=== PATIENT | male | born 1965 | race Caucasian/White ===

== ENCOUNTER → 2017-10-24 09:46 | Outpatient (CLI) | payer OTHER, SELFPAY ==
--- NOTE | 2017-10-24 | XR_ITS ---
XR chest 2V HISTORY: Tobacco use, smoker ORDERING PHYSICIAN: Jacob Feliz MD PATIENT AGE: 52 years COMPARISON: 04/20/2008 FINDINGS: The cardiomediastinal silhouette and pulmonary vascularity are within normal limits. COPD. Old granulomatous disease. No lobar consolidation or collapse. Degenerative change thoracic spine. IMPRESSION: No acute finding. COPD with old granulomatous disease
[2017-10-24 10:04] LABS: Basophils # 0.1 K/mm3 (0-0.2); Basophils % 1.6 % (0.1-2.0); Eosinophils # 0.3 K/mm3 (0.0-0.4); Eosinophils % 6.1 % (0.1-12.0); Hematocrit 48.1 % (42.0-52.0); Hemoglobin 16.6 g/dL (14.1-18.0); Lymphocytes % 19.9 K/mm3 (10-50); Mean Corpuscular HGB Conc 34.6 g/dL (31.8-35.4); Mean Corpuscular Hemoglobin 33.6 pg (27.0-31.2); Mean Corpuscular Volume 97.1 fl (80-94); Mean Platelet Volume 7.7 fl (7.4-10.4); Monocytes # 0.5 K/mm3 (0.1-1.0); Monocytes % 8.7 % (1.7-9.3); Neutrophils # 3.3 K/mm3 (1.8-7.8); Neutrophils % 63.8 % (37.0-80.0); Platelet Count 167 K/mm3 (142-424); Red Blood Count 4.95 M/mm3 (4.60-6.20); Red Cell Distribution Width 12.3 % (11.5-17.5); White Blood Count 5.2 K/mm3 (4.8-10.8)
[2017-10-24 11:28] LABS: Alanine Aminotransferase 38 U/L (12-78); Albumin Level 4.3 gm/dL (3.4-5.0); Albumin/Globulin Ratio 1.3 (1.1-1.8); Alkaline Phosphatase 55 U/L (46-116); Aspartate Amino Transferase 35 U/L (15-37); Bilirubin,Total 0.4 mg/dL (0.2-1.0); Blood Urea Nitrogen 7 mg/dL (7-18); Calcium 9.3 mg/dL (8.5-10.1); Carbon Dioxide 26 mmol/L (21.0-32.0); Chloride 100 mmol/L (98-107); Creatinine,Serum 0.75 mg/dL (0.70-1.30); Estimated Glomerular Filt Rate 109 ml/min (>60); GFR (African American) 132 ML/MIN (>60); Globulin 3.2 gm/dl (1.3-3.2); Glucose 85 mg/dL (74-106); Sodium 136 mmol/L (136-145); Total Protein,Serum 7.5 gm/dL (6.4-8.2)
== END ==
PROVIDERS: PCP Family Medicine; Visit Provider Orthopaedic Surgery
DX: Z01.812 Encounter for preprocedural laboratory examination (principal); Z01.810 Encounter for preprocedural cardiovascular examination
CPT/HCPCS: 36415; 71046; 80053; 85025; 93005

== ENCOUNTER 2017-11-04 06:01 | Day surgery (SDC) | payer OTHER, SELFPAY ==
[2017-11-03 13:43] VITALS: BMI 23.7
[2017-11-04] VITALS (13 sets, daily range): BP systolic 94–145; BP diastolic 47–89; PULSE 57–76; RESP 12–26; TEMP 36.1–43; O2SAT 90–98
--- NOTE | 2017-11-04 07:05 | P.PN_ITS ---
[facility] Anesthesia Checklist - Patient Identification Patient Identification: Arm Band - Structural Data Admitted From: Home Planned Operative Procedure/s: right shoulder arthroscopy rotator cuff repair Consent for Planned Operative Procedure(s) Verified: Yes Verified Documents: Surgical Consent, History and Physical - NPO Status Verified Time NPO: 00:00 - Additional verifications Anesthesia Reactions: No - Airway Assessment C-Spine Mobility Assessed: Yes (mp2) TMJ Mobility Assessed: Yes - Neurological Assessment Level of Consciousness: Awake, Alert - Anesthesia Plan Anesthesia Risk discussed: Yes Anesthesia Plan: Verified ASA Class: II Anesthesia Type: General [facility] Anesthesia HX I have reviewed the patient's past medical history: Yes Medical History: Reports:: Cancer (SKIN CANCER LEFT EAR), Hypertension Denies:: Diabetes Mellitus Type 1, Diabetes Mellitus Type 2, Internal Pacemaker, MRSA, Seizures Other Medical History: Denies: Blood Transfusion Reaction Laterality Cases: Right: Arthroscopy Shoulder Other Surgeries: Yes: Other (Right Arm, Eye, Left ear lesion removal.). No: Pacemaker Amputation: No Fractures: No *Family Hx:: Cancer, Diabetes, Heart Attack, Hyperlipidemia, Hypertension, Stroke
--- NOTE | 2017-11-04 13:35 | P.PN_ITS ---
[facility] Anesthesia Record Part I Intake, IV Amount: 4,200 Estimated blood loss (mL): 20 Urine output (mL): 650 Blood Pressure: 113/47 SaO2: 93 Pulse Rate: 57 Respiratory Rate: 12 Temperature: 97 F Patient is:: Awake, Stable Stable to PACU at:: 13:30
--- NOTE | 2017-11-04 13:35 | HMH.ANESII ---
[facility] Anesthesia Record Part II Discharge Time: 14:00 Destination: [facility] PACU nurse assessment reviewed?: Yes Patient Condition:: Good Anesthesia Complications:: None
--- NOTE | 2017-11-04 13:36 | P.PN_ITS ---
[facility] Anesthesia Record Part II Discharge Time: 14:00 Destination: [facility] PACU nurse assessment reviewed?: Yes Patient Condition:: Good Anesthesia Complications:: None
--- NOTE | 2017-11-04 13:46 | HMH.OPNOTE ---
Date of procedure: 11/25/17 Pre-op Diagnosis:: 1. Partial-thickness rotator cuff tear, RIGHT shoulder 2. Biceps tendon tear, RIGHT shoulder 3. Subacromial bursitis, RIGHT shoulder 4. Subacromial impingement, RIGHT shoulder 5. Rotator cuff tendinopathy, right shoulder 6. Acromioclavicular joint arthritis, right shoulder Post-op diagnosis:: other (1. Partial-thickness rotator cuff tear, RIGHT shoulder) Procedure performed:: 1. Arthroscopic repair of a full-thickness superior half partial subscapularis tendon tear, RIGHT shoulder. 2. Arthroscopic repair of partial thickness supraspinatus tendon repair, right shoulder 3. Arthroscopic subacromial decompression with subacromial and subdeltoid bursectomy and bony acromioplasty, RIGHT shoulder. 4. Arthroscopic glenohumeral joint debridement, RIGHT shoulder. 5. Arthroscopic suprapectoral biceps tenodesis, right shoulder 6. Arthroscopic distal clavicle resection, right shoulder Surgeon:: Jacob Feliz MD Systems Test Technician(s):: Laura Fowler HAMMER OPERATOR:: Jc Patel Anesthesia: GETA (With interscalene block) Estimated blood loss (mL): 10 Clinical Note:: Patient is a 52-year-old [id number] gentleman with history of pain and disability in his RIGHT shoulder following a work-related injury. He has weakness and difficulty with the use of the arm. He failed to respond satisfactorily to adequate non-operative management. Preoperative evaluation was consistent with the above mentioned diagnosis. After discussion of the risks and benefits of the surgical versus nonsurgical management, he elected to proceed with surgical remediation. Operative findings:: Examination of the shoulder under anesthesia showed good range of shoulder movements no instability was noted. Arthroscopic examination of the glenohumeral joint showed extensive labral fraying and detachment of the anterior, superior and posterior labrum from the glenoid. The biceps tendon was still noted to be intact contrary to the MRI report. The intra-articular portion of the biceps tendon was very degenerate and thinned out with extensive fraying. The portion of the tendon in the bicipital groove showed extensive synovitis. Also the extraocular the tendon showed thickening associated with extensive synovitis in the groove. The subscapularis tendon showed tendinopathy and had a full-thickness complete tear of the upper half of the tendon from its insertion to the lesser tuberosity. The lower half of the tendon was intact. The supraspinatus tendon showed partial thickness bursal surface tearing involving less than 50% of the footprint. No full-thickness tearing was noted involving the supraspinatus, infraspinatus or teres minor tendons. No intra-articular loose bodies were noted. The labrum showed extensive fraying and degeneration. The pouch was normal; the rotator interval was synovitic. The articular surface of the humerus and glenoid showed minimal degenerative changes. There was extensive subacromial and subdeltoid bursitis and the acromion had undersurface spurring over the anterolateral margin. Osteophytes were noted over the undersurface of the acromioclavicular joint. Operative note:: On the day of the procedure, the patient was met and positively identified in the preoperative area; the surgical site was marked and initialed by me. I again reviewed the clinical, x- ray and MRI findings with the patient. We had a detailed discussion about the diagnosis, implications of it, natural history and management options including both nonsurgical and surgical options for the shoulder. Patient has decided to proceed with surgery as planned - the proposed surgery includes arthroscopic glenohumeral joint examination and debridement [as appropriate], subacromial decompression with bony acromioplasty, [rotator cuff tendon debridement or repair as needed] and [distal clavicle excision]. [Even though the preoperative MRI indicated that the biceps tendon is ruptured,
--- NOTE | 2017-11-04 15:52 | SUR.OPER ---
Addendum entered by Kerri Rosales RN 11/04/17 15:53: pt received second dose of Ancef 1 gm at 1124 from Fabrice Reeves [facility] per MD request Original Note: urinary catheter removed at 1320 by Kaitlynn Almodovar RN
[2017-11-04 15:57] LABS: Microscopic,Cath URINE MICROSCOPIC (MICROSCOPIC)
[2017-11-04 16:48] LABS: Bacteria,Urine/Cath TRACE /lpf; Squamous Epithelial Ur./Cath Occasional #/hpf (0-5)
[2017-11-04 16:51] LABS: Appearance,Urine/Cath CLEAR (Clear); Bilirubin,Cath Negative (Negative); Blood, Urine/Cath Negative (Negative); Color,Urine/Cath YELLOW (Yellow); Glucose,Urine/Cath (UA) Negative (Negative); Ketones,Urine/Cath Negative (Negative); Leukocyte Esterase,Cath Negative (Negative); Nitrate,Cath Negative (Negative); Protein,Urine/Cath Negative (Negative); Specific Gravity, Urine/Cath <= 1.005 (1.005-1.030); Urobilinogen,Cath 0.2 EU/dl (0.2)
--- NOTE | 2017-11-26 15:01 | HMH.OPNOTE ---
Date of procedure: 11/04/17 Pre-op Diagnosis:: 1. Partial-thickness rotator cuff tear, RIGHT shoulder 2. Biceps tendon tear, RIGHT shoulder 3. Subacromial bursitis, RIGHT shoulder 4. Subacromial impingement, RIGHT shoulder 5. Rotator cuff tendinopathy, right shoulder 6. Acromioclavicular joint arthritis, right shoulder Post-op Diagnosis:: 1. Partial-thickness supraspinatus tendon tear, RIGHT shoulder 2. Full-thickness superior border subscapularis tendon tear, right shoulder 3. Biceps tendinitis, RIGHT shoulder 4. Subacromial bursitis, RIGHT shoulder 5. Subacromial impingement, RIGHT shoulder 6. Rotator cuff tendinopathy, right shoulder 7. Acromioclavicular joint arthritis, right shoulder 8. Glenoid labral tear, right shoulder Procedure performed:: 1. Arthroscopic repair of a full-thickness superior half partial subscapularis tendon tear, RIGHT shoulder. 2. Arthroscopic repair of partial thickness supraspinatus tendon repair, right shoulder 3. Arthroscopic subacromial decompression with subacromial and subdeltoid bursectomy and bony acromioplasty, RIGHT shoulder. 4. Arthroscopic glenohumeral joint debridement, RIGHT shoulder. 5. Arthroscopic suprapectoral biceps tenodesis, right shoulder 6. Arthroscopic distal clavicle resection, right shoulder Surgeon:: Jacob Feliz MD Dental Nurse(s):: Laura Fowler DIRECTOR CLINICAL PHARMACOLOGY:: Jc Patel Anesthesia: GETA (with interscalene block) Estimated blood loss (mL): 10 Clinical Note:: Patient is a 52-year-old [id number] gentleman with history of pain and disability in his RIGHT shoulder following a work-related injury. He has weakness and difficulty with use of the arm. He failed to respond satisfactorily to adequate non-operative management. Preoperative evaluation was consistent with the above mentioned diagnosis. After discussion of the risks and benefits of the surgical versus nonsurgical management, he elected to proceed with surgical remediation. Operative findings:: Examination of the shoulder under anesthesia showed good range of shoulder movements and no instability was noted. Arthroscopic examination of the glenohumeral joint showed extensive labral fraying and detachment of the anterior, superior and posterior labrum from the glenoid. The biceps tendon was still noted to be intact contrary to the MRI report. The intra-articular portion of the biceps tendon was very degenerate and thinned out with extensive fraying. The portion of the tendon in the bicipital groove showed extensive synovitis. Also the extra-articular part of the tendon showed thickening associated with extensive synovitis in the groove. The subscapularis tendon showed tendinopathy and had a full-thickness complete tear of the upper half of the tendon from its insertion to the lesser tuberosity. The lower half of the tendon was intact. The supraspinatus tendon showed partial thickness bursal surface tearing involving less than 50% of the footprint. No full-thickness tearing was noted involving the supraspinatus, infraspinatus or teres minor tendons. No intra-articular loose bodies were noted. The labrum showed extensive fraying and degeneration. The pouch was normal; the rotator interval was synovitic. The articular surface of the humerus and glenoid showed minimal degenerative changes. There was extensive subacromial and subdeltoid bursitis and the acromion had undersurface spurring over the anterolateral margin. Osteophytes were noted over the undersurface of the acromioclavicular joint. Operative note:: Operative note:: On the day of the procedure, the patient was met and positively identified in the preoperative area; the surgical site was marked and initialed by me. I again reviewed the clinical, x- ray and MRI findings with the patient. We had a detailed discussion about the diagnosis, implications of it, natural history and management options including both nonsurgical and surgical options for the shoulder. Patient h
--- NOTE | 2017-11-26 15:04 | P.OP_ITS ---
Date of procedure: 11/04/17 Pre-op Diagnosis:: 1. Partial-thickness rotator cuff tear, RIGHT shoulder 2. Biceps tendon tear, RIGHT shoulder 3. Subacromial bursitis, RIGHT shoulder 4. Subacromial impingement, RIGHT shoulder 5. Rotator cuff tendinopathy, right shoulder 6. Acromioclavicular joint arthritis, right shoulder Post-op Diagnosis:: 1. Partial-thickness supraspinatus tendon tear, RIGHT shoulder 2. Full-thickness superior border subscapularis tendon tear, right shoulder 3. Biceps tendinitis, RIGHT shoulder 4. Subacromial bursitis, RIGHT shoulder 5. Subacromial impingement, RIGHT shoulder 6. Rotator cuff tendinopathy, right shoulder 7. Acromioclavicular joint arthritis, right shoulder 8. Glenoid labral tear, right shoulder Procedure performed:: 1. Arthroscopic repair of a full-thickness superior half partial subscapularis tendon tear, RIGHT shoulder. 2. Arthroscopic repair of partial thickness supraspinatus tendon repair, right shoulder 3. Arthroscopic subacromial decompression with subacromial and subdeltoid bursectomy and bony acromioplasty, RIGHT shoulder. 4. Arthroscopic glenohumeral joint debridement, RIGHT shoulder. 5. Arthroscopic suprapectoral biceps tenodesis, right shoulder 6. Arthroscopic distal clavicle resection, right shoulder Surgeon:: Jacob Feliz MD Exhibit Electrician(s):: Laura Fowler OPERATIONS MANAGEMENT TRAINEE:: Jc Patel Anesthesia: GETA (with interscalene block) Estimated blood loss (mL): 10 Clinical Note:: Patient is a 52-year-old [id number] gentleman with history of pain and disability in his RIGHT shoulder following a work-related injury. He has weakness and difficulty with use of the arm. He failed to respond satisfactorily to adequate non-operative management. Preoperative evaluation was consistent with the above mentioned diagnosis. After discussion of the risks and benefits of the surgical versus nonsurgical management, he elected to proceed with surgical remediation. Operative findings:: Examination of the shoulder under anesthesia showed good range of shoulder movements and no instability was noted. Arthroscopic examination of the glenohumeral joint showed extensive labral fraying and detachment of the anterior, superior and posterior labrum from the glenoid. The biceps tendon was still noted to be intact contrary to the MRI report. The intra-articular portion of the biceps tendon was very degenerate and thinned out with extensive fraying. The portion of the tendon in the bicipital groove showed extensive synovitis. Also the extra-articular part of the tendon showed thickening associated with extensive synovitis in the groove. The subscapularis tendon showed tendinopathy and had a full-thickness complete tear of the upper half of the tendon from its insertion to the lesser tuberosity. The lower half of the tendon was intact. The supraspinatus tendon showed partial thickness bursal surface tearing involving less than 50% of the footprint. No full-thickness tearing was noted involving the supraspinatus, infraspinatus or teres minor tendons. No intra-articular loose bodies were noted. The labrum showed extensive fraying and degeneration. The pouch was normal; the rotator interval was synovitic. The articular surface of the humerus and glenoid showed minimal degenerative changes. There was extensive subacromial and subdeltoid bursitis and the acromion had undersurface spurring over the anterolateral margin. Osteophytes were noted over the undersurface of the acromioclavicular joint. Operative note:: Operative note:: On the day of the procedure, the patient was met and positively identified in the preoperative area; the surgical site was marked and initialed by me. I
== END 2017-11-04 15:00 | disposition home or self-care (01) ==
PROVIDERS: Family Provider Orthopaedic Surgery; PCP Family Medicine; Visit Provider Orthopaedic Surgery
PROC: (CPT 29827; principal; 2017-11-04 07:30)
DX: M75.111 Incomplete rotator cuff tear or rupture of right shoulder, not specified as traumatic (principal); M75.41 Impingement syndrome of right shoulder; M19.111 Post-traumatic osteoarthritis, right shoulder; M75.51 Bursitis of right shoulder; M89.011 Algoneurodystrophy, right shoulder; Y99.0 Civilian activity done for income or pay
CPT/HCPCS: 29827; 29828; 29826; 81001; 96374; C1713; J2405

== ENCOUNTER → 2018-01-28 08:27 | Outpatient (CLI) | payer OTHER, SELFPAY ==
--- NOTE | 2018-01-28 | XR_ITS ---
XR shoulder RT min 2V HISTORY: Follow-up surgery with pain ITS.REASON: POST OPERATIVE VISIT ORDERING PHYSICIAN: Jacob Feliz MD PATIENT AGE: 52 years COMPARISON: 07/14/2017 FINDINGS: There has been osteotomy of the acromioclavicular joint. No acute fracture or dislocation. Unremarkable glenohumeral joint. No lytic or blastic changes. IMPRESSION: Osteotomy at the acromioclavicular joint otherwise no change
== END ==
PROVIDERS: Visit Provider Orthopaedic Surgery
DX: Z48.89 Encounter for other specified surgical aftercare (principal)
CPT/HCPCS: 73030

== ENCOUNTER 2018-03-17 08:00 | Outpatient (RCR) | payer OTHER, SELFPAY ==
--- NOTE | 2017-12-23 09:37 | HMH.PTOPEV ---
Rehab Outpatient Evaluation Rehab OP Evaluation Start: 12/23/17 08:34 Freq: Status: Active Protocol: Document 12/23/17 08:34 TFRY (Rec: 12/23/17 09:36 TFRY [id number]) Electronically Signed By Judith Santos OT 12/23/17 08:34 Outpatient Therapy Subjective History Subjective History THIS IS A 52 YEAR OLD RIGHT HANDED MALE REFERRED TO OCCUPATIONAL THERAPY PATIENT IN STATUS POST ROTATOR CUFF REPAIR, BICEP TENODESIS, DISTAL CLAVILE EXCISION AND SAD RIGHT SHOULDER ON 11/04/17. PATIENT REPORTS THAT HE INJURIED HIS SHOULDER ON 07/14 WHEN HE WENT TO FALL WITH OUTSTRETCHED ARM. Chief Complaint Pain Symptom Type Dull Burning Symptoms Relieved By Rest/Positioning Symptoms Aggravated By Physical Activity Prior Functional Limitations None Current Functional Limitations Reaching Lifting Symptom Description Intermittent Level of pain today (0-10) 2 Pain scale - at its best (0-10) 0 Pain scale - at its worst (0-10) 8 Shoulder/Elbow Eval Shoulder Objective Measurements Palpation Tenderness tenderness shoulder exam standard right tenderness over the bicipital tendon right shoulder exam standard Shoulder Palpation Findings Tenderness Shoulder ROM Right Shoulder ROM Limitations Pain Shoulder Abduction Active Range of 30 Motion (degrees) Shoulder Abduction Passive Range of 40 Motion (degrees) Shoulder Flexion Active Range of Motion 60 (degrees) Query Text: Shoulder Flexion Passive Range of Motion 90 (degrees) Shoulder External Rotation Active Range 0 of Motion (degrees) Shoulder External Rotation Passive Range 0 of Motion (degrees) Shoulder Internal Rotation Active Range WFL GRAVITY ELIM. of Motion (degrees) Shoulder Internal Rotation Passive Range 40 of Motion (degrees) Shoulder Extension Active Range of 20 Motion (degrees) pain with active ROM shoulder exam right standard pain with passive ROM shoulder exam right standard decreased ROM shoulder exam standard right Shoulder MMT Shoulder Strength Reason Not Measured Orthopedic Precautions Elbow Objective Measurements Outpatient Therapy Assessment Impairments Problems/Impairmments Palpation Tenderness Impaired Range
== END 2018-03-17 09:29 | disposition home or self-care (01) ==
LOC: OT 08:00
PROVIDERS: Family Provider Orthopaedic Surgery; PCP Physician Assistant; Visit Provider Orthopaedic Surgery
DX: Z98.890 Other specified postprocedural states (principal); Z09 Encounter for follow-up examination after completed treatment for conditions other than malignant neoplasm; S46.011A Strain of muscle(s) and tendon(s) of the rotator cuff of right shoulder, initial encounter
CPT/HCPCS: 97014; 97110; 97140; 97163; 97165; G0283

== ENCOUNTER → 2019-12-23 10:37 | Outpatient (CLI) | payer OTHER, SELFPAY ==
--- NOTE | 2019-12-23 10:38 | MR_ITS ---
PROCEDURE: MR SHOULDER LT WO CON CLINICAL INDICATION: evaluate for a rotator cuff tear Left shoulder pain with limited range of motion COMPARISON: The TECHNIQUE: Routine multiplanar multi echo sequences are performed without gadolinium enhancement. FINDINGS: There is mild narrowing of the subacromial space. There is some edema within the AC joint. There is complete tear of the infraspinatus tendon with retraction of the musculotendinous fibers. Full-thickness tear involves the distal aspect of the supraspinatus tendon. There is thickening of the tendon distally as well. The supraspinatus tendon tear does not appear to be complete. The subscapularis and teres minor tendons are intact. There is moderate amount of edema about the shoulder specially in the infraspinatus region. Small amount fluid is present in the subcoracoid area. There is fluid deep to the deltoid at the supraspinatus region. The bicipital tendon is in place. No obvious labral tear. The there are mild osteoarthritic changes of the shoulder joint. IMPRESSION: 1. Complete tear of the infraspinatus tendon with retraction of the musculotendinous fibers 2. Full-thickness tear of the supraspinatus tendon distally without retraction of the musculotendinous fibers. 3. Subacromial stenosis with moderate amount of soft tissue edema about the shoulder joint and subcoracoid bursitis with the with mild osteoarthritis. Dictated by: Ancelmo Gomez MD 12/25/2019 07:58 Electronically signed by Ancelmo Gomez MD in [place] 12/25/2019 07:58
== END ==
PROVIDERS: PCP Family Medicine; Visit Provider Orthopaedic Surgery
DX: M75.42 Impingement syndrome of left shoulder (principal)
CPT/HCPCS: 73221

== ENCOUNTER → 2020-02-05 08:42 | Outpatient (CLI) | payer OTHER, SELFPAY ==
[2020-02-05 09:46] LABS: Basophils # 0.1 K/mm3 (0-0.2); Basophils % 3.1 % (0.1-2.0); Eosinophils # 0.2 K/mm3 (0.0-0.4); Eosinophils % 4.6 % (0.1-12.0); Hematocrit 50.3 % (42.0-52.0); Lymphocytes # 1.2 K/mm3 (0.7-4.5); Lymphocytes % 32.4 % (10-50); Mean Corpuscular HGB Conc 33.7 g/dL (31.8-35.4); Mean Corpuscular Hemoglobin 32.2 pg (27.0-31.2); Mean Corpuscular Volume 95.5 fl (80-94); Mean Platelet Volume 7.5 fl (7.4-10.4); Monocytes # 0.3 K/mm3 (0.1-1.0); Monocytes % 8.9 % (1.7-9.3); Neutrophils # 1.8 K/mm3 (1.8-7.8); Neutrophils % 51.2 % (37.0-80.0); Platelet Count 165 K/mm3 (142-424); Red Blood Count 5.27 M/mm3 (4.60-6.20); Red Cell Distribution Width 12.7 % (11.5-17.5); White Blood Count 3.6 K/mm3 (4.8-10.8)
--- NOTE | 2020-02-05 09:50 | ECG_ITS ---
APPROVED REPORT Exam: Resting ECG HR:69 bpm ECG Measurements Heart Rate 69 AXES TX 164 P 79 QRSd 96 QRS 61 QT 396 T 73 QTc 424 <Conclusion> Normal sinus rhythm Incomplete RBBB Otherwise a Normal ECG Electronically signed by : Anish Torres, 02/05/2020 22:23:36
--- NOTE | 2020-02-05 09:54 | XR_ITS ---
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 The lungs are clear without infiltrates, suspicious nodules, or pleural effusions. No acute bony abnormalities. There are mild multilevel degenerate changes of the thoracic spine. IMPRESSION: No acute findings. Dictated by: Dr. Geovany Duff MD 02/05/2020 10:[address] Geovany Duff MD in [place] 02/05/2020 10:44
[2020-02-05 10:33] LABS: Chloride 99 mmol/L (98-107)
[2020-02-05 10:34] LABS: Potassium 4.8 mmoL/L (3.5-5.1); Sodium 131 mmol/L (136-145)
[2020-02-05 10:37] LABS: Anion Gap 8.8 mEq/L (5-15); Blood Urea Nitrogen 8 mg/dl (9-20); Carbon Dioxide 28 mmol/L (22.0-30.0); Estimated Glomerular Filt Rate 100 ml/min (>60); GFR (African American) 121 ML/MIN (>60); Glucose 102 mg/dl (74-100)
[2020-02-06 08:32] LABS: Covid-19 Nasal PCR Sendout UK NOT DETECTED
== END ==
PROVIDERS: Orthopaedic Surgery; PCP Family Medicine; Visit Provider Internal Medicine Gastroenterology
DX: Z01.818 Encounter for other preprocedural examination (principal); M25.512 Pain in left shoulder
CPT/HCPCS: 36415; 71046; 80048; 85025; 93005; U0003

== ENCOUNTER 2020-02-07 08:39 | Day surgery (SDC) | payer OTHER, SELFPAY ==
--- NOTE | 2020-02-02 14:35 | SUR.PREOP ---
02/01/20 @2220--PHONE CALL MADE TO PATIENT. PATIENT UNDERSTANDS THAT LAB WORK AND COVID TESTING NEEDS TO BE COMPLETED @ 0800 ON 02/05/20. PATIENT UNDERSTANDS IF LAB WORK AND COVID-19 TESTS ARE NOT COMPLETED BY 12PM ON THAT DATE, THE SURGERY SCHEDULED WILL BE CANCELLED AND RESCHEDULED FOR ANOTHER TIME.
[2020-02-03 11:18] VITALS: BMI 23.7
[2020-02-07] VITALS (11 sets, daily range): BP systolic 101–152; BP diastolic 55–77; PULSE 55–82; RESP 12–18; TEMP 36.4–43; O2SAT 94–99
--- NOTE | 2020-02-07 10:49 | P.PN_ITS ---
[facility] Anesthesia Checklist - Structural Data Admitted From: Home Planned Operative Procedure/s: l shoulder arthroscopy Consent for Planned Operative Procedure(s) Verified: Yes - Additional verifications Anesthesia Reactions: No Hx Blood Transfusions: No Blood Transfusion Reaction: No - Airway Assessment C-Spine Mobility Assessed: Yes TMJ Mobility Assessed: Yes Dentition: Partials - Neurological Assessment Level of Consciousness: Awake, Alert, Appropriate - Anesthesia Plan Anesthesia Risk discussed: Yes Anesthesia Plan: Verified ASA Class: II Anesthesia Type: General w/block - Preoperative Comments Pre-Operative Comments: explained bp block to pt incl risks,pt agrees to proceed [facility] History I have reviewed the patient's past medical history: Yes Medical History: Reports:: Cancer (skin), Hypertension Denies:: Diabetes Mellitus Type 1, Diabetes Mellitus Type 2, Internal Pacemaker, MRSA, Seizures *Have you ever received a pneumonia vaccine?: No *Have you received a flu vaccine this season?: No Other Medical History: Denies: Blood Transfusion Reaction Anesthesia experience/problems:: none Laterality Cases: Right: Arthroscopy Shoulder Other Surgeries: Yes: Other. No: Pacemaker Amputation: No Fractures: Yes - *Social History Educational Level: Completed GED/General Educational Development Smoking Status: Current every day smoker Tobacco Type: cigarettes # Packs/Day (cigarettes): 1 Alcohol Intake: never Alcohol Intake Frequency:: a few times a month Substance Use Type: denies use *Occupational Status:: employed Housing: house Household Members: spouse, children *Travel in the last 8 weeks: None Family Hx:: No significant family history
--- NOTE | 2020-02-07 14:24 | SUR.OPER ---
1100-pt's updated at this time 1420-pt's updated at this time
--- NOTE | 2020-02-07 15:43 | P.PN_ITS ---
[facility] Anesthesia Record Part I Intake, IV Amount: 2,700 Estimated blood loss (mL): 20 Urine output (mL): 600 Blood Pressure: 106/56 SaO2: 97 Pulse Rate: 55 Respiratory Rate: 12 Temperature: 97.6 F Patient is:: Drowsy, Stable Stable to PACU at:: 15:40
[2020-02-07 16:07] LABS: Microscopic,Cath URINE MICROSCOPIC (MICROSCOPIC)
[2020-02-07 16:23] LABS: Appearance,Urine/Cath CLEAR (Clear); Bilirubin,Cath Negative (Negative); Blood, Urine/Cath Negative (Negative); Color,Urine/Cath YELLOW (Yellow); Glucose,Urine/Cath (UA) Negative (Negative); Ketones,Urine/Cath Negative (Negative); Leukocyte Esterase,Cath Negative (Negative); Nitrate,Cath Negative (Negative); Protein,Urine/Cath Negative (Negative); Specific Gravity, Urine/Cath <= 1.005 (1.005-1.030); Urobilinogen,Cath 0.2 EU/dl (0.2)
[2020-02-07 16:59] LABS: Squamous Epithelial Ur./Cath Occasional #/hpf (0-5); WBC,Urine/Cath Occasional #/hpf (0-3)
--- NOTE | 2020-02-07 17:43 | HMH.OPNOTE ---
Date of procedure: 02/07/20 Pre-op Diagnosis:: 1.? Full-thickness Rotator cuff tear LEFT shoulder 2. Biceps tendinopathy LEFT shoulder 3. Subacromial bursitis LEFT shoulder 4. Subacromial impingement LEFT shoulder 5. Acromioclavicular joint arthritis LEFT shoulder Post-op Diagnosis:: 1. Rotator cuff tear, LEFT shoulder- Full thickness tear of the supraspinatus tendon. 2. Biceps tendinopathy, LEFT shoulder 3. Subacromial bursitis, LEFT shoulder 4. Subacromial impingement, LEFT shoulder 5. Degenerative labrum, LEFT glenohumeral joint 6.? Acromioclavicular joint arthritis, LEFT shoulder Procedure performed:: 1. LEFT shoulder arthroscopic rotator cuff repair. 2.? LEFT shoulder arthroscopic subacromial decompression with subacromial and subdeltoid bursectomy and a bony acromioplasty. 3.? LEFT shoulder arthroscopic glenohumeral joint debridement, extensive. 4.? LEFT shoulder arthroscopic biceps tenodesis 5.? LEFT shoulder arthroscopic distal clavicle excision Surgeon:: Jacob Feliz MD Lab Asst(s):: Zulema Vu SYSTEMS PROJECT MANAGER:: Jc Patel Anesthesia: GETA, regional (Interscalene nerve block) Estimated blood loss (mL): 5 Clinical Note:: Patient is a 54-year-old [id number] male with pain and disability in his LEFT shoulder after a work-related injury couple of months ago. He had pain, weakness and difficulty with the use of the arm. Preoperative evaluation including MRI scan was consistent with the above mentioned diagnosis.? The MRI findings included- 1. Full-thickness tear of the supraspinatus tendon without retraction of the tendon. 2. Complete full-thickness tear of the infraspinatus tendon with retraction of the musculotendinous fibers. 3. Subacromial stenosis with acromioclavicular hypertrophy. After discussion of the risks and benefits of the surgical versus nonsurgical management, he elected to proceed with surgical remediation.? Please refer to my office note for full details. Operative findings:: There was a complete full-thickness tear of the infraspinatus tendon and near complete full-thickness tear of the supraspinatus tendon; only small part of the anterior supraspinatus tendon was intact. The biceps tendon showed some fraying at the biceps anchor and also intrasubstance tearing and synovitis.? The labrum was frayed and partially detached around the biceps anchor.? The articular surface of the humerus and the glenoid are fairly well preserved with no significant cartilage loss. There was extensive subacromial and sub deltoid bursitis and the acromion had undersurface spurring over the anterolateral margin. Also there was undersurface spurring over the AC joint. Operative note:: On the day of the procedure, the patient was positively identified in the preoperative area, the surgical site was marked and initialed by me. I performed a general physical examination, reviewed the consent form, his clinical and diagnostic information. We again had a detailed discussion about the diagnosis, natural history and management options including both nonsurgical and surgical options for his shoulder. Nonsurgical alternatives discussed include physical therapy, activity modification NSAIDs and effective pain management. Given the symptoms, clinical and MRI findings, functional status, his age, patient is opting for surgical remediation.? I have discussed the surgical option best suited for his shoulder- an arthroscopic/open rotator cuff repair, glenohumeral joint debridement, distal clavicle excision, biceps tenotomy versus tenodesis and subacromial decompression. I told the patient that there were no guarantees with surgery; he could be no better or even worse. The complications discussed include but are not limited to infection, injury to nerves and blood vessels, bleeding, hematoma, tendon injury, fluid extravasation, chondrolysis, injury to the articular surface, instrument failure, DVT/PE, incomplete relief/continued pain, failure of the condition to impr
== END 2020-02-07 17:18 | disposition home or self-care (01) ==
LOC: OR 08:42
PROVIDERS: PCP Family Medicine; Visit Provider Orthopaedic Surgery
PROC: (CPT 29805; principal; 2020-02-07 10:00)
DX: M75.122 Complete rotator cuff tear or rupture of left shoulder, not specified as traumatic (principal); M75.52 Bursitis of left shoulder; M75.42 Impingement syndrome of left shoulder; M12.512 Traumatic arthropathy, left shoulder; Z72.0 Tobacco use; I10 Essential (primary) hypertension; W10.8XXA Fall (on) (from) other stairs and steps, initial encounter; Y92.63 Factory as the place of occurrence of the external cause
CPT/HCPCS: 29827; 29828; 29826; 81001; 96374; C1713

== ENCOUNTER → 2020-05-08 07:49 | Outpatient (CLI) | payer OTHER, SELFPAY ==
--- NOTE | 2020-05-08 07:54 | XR_ITS ---
PROCEDURE: XR SHOULDER LT MIN 2V CLINICAL INDICATION: sp LT shoulder surgery, dos 02/07/2020 Follow-up surgery COMPARISON: 12/16/2019 FINDINGS: Status post acromioclavicular osteotomy. There is mild subacromial stenosis distally. There are 2 anchor screws now present along the humeral head and there is a lucency in the proximal aspect of the humerus at the diaphyseal metaphyseal junction consistent with bicipital tendon transfer. There are mild osteoarthritic changes of the glenohumeral joint. Other findings:None. IMPRESSION: Postsurgical changes as described above with mild osteoarthritis Dictated b Ancelmo Gomez MD 05/08/2020 08:24 Ancelmo Gomez MD in [facility] 05/08/2020 08:24
== END ==
PROVIDERS: PCP Family Medicine; Visit Provider Orthopaedic Surgery
DX: Z09 Encounter for follow-up examination after completed treatment for conditions other than malignant neoplasm (principal); Z98.890 Other specified postprocedural states
CPT/HCPCS: 73030

== ENCOUNTER 2020-05-18 16:00 | Outpatient (RCR) | payer OTHER, SELFPAY ==
--- NOTE | 2020-03-28 15:16 | HMH.PTOPEV ---
PT Outpatient Evaluation Rehab PT Outpatient Evaluation Start: 03/28/20 14:46 Freq: Status: Active Protocol: Document 03/28/20 14:51 DEBBIEDMITRY (Rec: 03/28/20 15:16 ELEONORAKELLY [id number]) Electronically Signed By Jude Vu PT 03/28/20 14:51 Outpatient Therapy Subjective History Subjective History This is the initial Physical Therapy evaluation for Dante Fournier. Pt is a 54 y/o male referred to PT s/p Pat slade. Pt reports original injury was due to a fall down stairs. Pt reports he slipped and reached out to grab to keep from falling and felt severe pain. Pt reports due to COVID he was unable to have surgery until 02/07/20. MD order describes sig. surgical procedures including RCR, bicep tenodesis, SAD, clavicle excision and bursectomy. Chief Complaint Pain,Stiff,Weakness Symptom Type Ache,Sharp,Stabbing Symptoms Relieved By Rest/Positioning,Ice Symptoms Aggravated By Physical Activity,Lifting Prior Functional Limitations None Current Functional Limitations Reaching,Lifting,Housework, Dressing,Desk Work/Reading, Driving,Sleeping,Recreation Activity Symptom Description Intermittent Level of pain today (0-10) 4 Pain scale - at its best (0-10) 0 Pain scale - at its worst (0-10) 6 Shoulder/Elbow Eval Shoulder Objective Measurements Shoulder ROM Left Shoulder ROM Limitations Muscle Weakness,Pain Shoulder Abduction Active Range of 50 Motion (degrees) Shoulder Flexion Active Range of Motion 60 (degrees) Query Text: Shoulder External Rotation Active Range 15 of Motion (degrees) Shoulder Extension Active Range of 35 Motion (degrees) pain with active ROM shoulder exam left standard pain with passive ROM shoulder exam left standard decreased ROM shoulder exam standard left full ROM shoulder exam standard right Elbow Objective Measurements Elbow ROM Left full ROM elbow exam standard left Elbow MMT Elbow/Forearm Strength Reason Not WFL Measured Outpatient Therapy Assessment Impairments Problems/Impairmments Palpation Tenderness,Impaired Range of Motion,Impaired
== END 2020-05-18 16:05 | disposition home or self-care (01) ==
LOC: PT 16:00
PROVIDERS: Visit Provider Orthopaedic Surgery
DX: M25.512 Pain in left shoulder (principal)
CPT/HCPCS: 97010; 97014; 97016; 97110; 97140; 97163; 97164; G0283

== ENCOUNTER 2020-08-10 15:00 | Outpatient (RCR) | payer OTHER, SELFPAY | END 2020-08-10 15:05 | disposition home or self-care (01) | LOC: PT 15:00 | PROVIDERS: Visit Provider Orthopaedic Surgery | DX: M75.102 Unspecified rotator cuff tear or rupture of left shoulder, not specified as traumatic (principal) | CPT/HCPCS: 97110; 97163; 97164 ==

== ENCOUNTER → 2021-01-18 12:39 | Outpatient (CLI) | payer OTHER, SELFPAY ==
--- NOTE | 2021-01-18 12:46 | MR_ITS ---
PROCEDURE: MR LUMBAR SPINE WO CON CLINICAL INDICATION: LBP RADIATING DOWN LEFT HIP Pt c/o lbp that radiates down left leg. No injury or trauma. Pt states he has a hx of DDD. COMPARISON: MR CROP DUSTER/O MRI-L-SPINE W/O from 08/16/2015 TECHNIQUE: Standard multiplanar multiecho sequences are performed without contrast. 3-D MIP and myelographic images are also rendered and reviewed FINDINGS: Motion artifact degrades fine detail. There is diffuse heterogeneous signal intensity of the spine consistent with heterogeneous red marrow replacement. The spinal cord ends at the L1 level. There is normal alignment. There is mild lumbar scoliosis convex left. T12-L1: Unremarkable. L1-L2: Mild bulging disc slightly eccentric toward the left not significantly changed. L2-L3: Mild concentric bulging disc the laterally not significantly changed. There is prominent bridging osteophytes on the right at L2-L3. Facet and ligamentum hypertrophy is present. These findings are not significantly changed. L3-L4: Degenerate disc disease with concentric bulging disc along with facet and ligamentum hypertrophic change with right lateral osteophytes and facet and ligamentum hypertrophy L4-5: Degenerative disc disease with bulging disc and a broad base central and left paracentral disc osteophyte complex along facet and ligamentum hypertrophy. This is causing severe left-sided foraminal narrowing and left lateral recess narrowing which appears more severe than when compared to the previous exam with compression upon the left L5 nerve root and the exiting L4 nerve root. L5-S1: Mild bulging disc along with facet and ligamentum hypertrophy with moderate bilateral foraminal narrowing.. IMPRESSION: Abnormal MRI of the lumbar spine with multilevel lumbar spondylosis with degenerative disc disease, bulging disc, disc osteophyte complexes along with facet and ligamentum hypertrophy and lumbar scoliosis convex left. Please see above for detailed description at each level. Dictated by: Ancelmo Gomez MD 01/20/2021 11:44 Ancelmo Gomez MD in [facility] 01/20/2021 11:44
== END ==
PROVIDERS: PCP Family Medicine; Visit Provider Family Medicine
DX: M51.36 Other intervertebral disc degeneration, lumbar region (principal)
CPT/HCPCS: 72148; 76376

== ENCOUNTER → 2021-04-30 10:25 | Outpatient (CLI) | payer OTHER, SELFPAY | PROVIDERS: Visit Provider Neurological Surgery | DX: Z01.812 Encounter for preprocedural laboratory examination (principal); Z11.52 Encounter for screening for COVID-19 | CPT/HCPCS: U0003 ==

== ENCOUNTER 2022-08-02 00:04 | Emergency (ER) | payer BC, SELFPAY ==
[2022-08-02] VITALS (7 sets, daily range): BP systolic 90–125; BP diastolic 56–78; PULSE 55–69; RESP 14–16; TEMP 36.6–36.7; O2SAT 95–98; BMI 25.0
--- NOTE | 2022-08-02 00:08 | ECG_ITS ---
APPROVED REPORT Exam: Resting ECG HR:60 bpm ECG Measurements Heart Rate 60 AXES MT 188 P 70 QRSd 109 QRS 75 QT 404 T 79 QTc 405 Conclusion SINUS RHYTHM POSSIBLE RIGHT VENTRICULAR CONDUCTION DELAY [RSR (QR) IN V1/V2] BORDERLINE ECG UNCONFIRMED REPORT Electronically signed by : Kuldeep Alvarado MD 08/02/2022 13:28:01
--- NOTE | 2022-08-02 00:17 | PC.NURSE ---
Dr. Rosales at
--- NOTE | 2022-08-02 00:21 | CT_ITS ---
PROCEDURE INFORMATION: Exam: CT Head Without Contrast Exam date and time: 08/02/2022 12:41 AM Age: 57 years old Clinical indication: Other: Tremors TECHNIQUE: Imaging protocol: Computed tomography of the head without contrast. Radiation optimization: All CT scans at this facility use at least one of these dose optimization techniques: automated exposure control; mA and/or kV adjustment per patient size (includes targeted exams where dose is matched to clinical indication); or iterative reconstruction. COMPARISON: HDWO CT HEAD W/O CONTRAST 01/18/2017 10:39 PM FINDINGS: Brain: Patchy hypoattenuation in the periventricular deep white matter bilaterally. Cerebral ventricles: Enlargement of ventricles, sulci and cisterns bilaterally. Paranasal sinuses: Mucosal thickening within paranasal sinuses but no fluid levels are evident. Mastoid air cells: Visualized mastoid air cells are well aerated. Bones/joints: Unremarkable. No acute fracture. Soft tissues: Unremarkable. Vasculature: Calcification of carotid siphons and vertebrobasilar arterial systems. IMPRESSION: No evidence for acute intracranial hemorrhage, midline shift or mass effect. Mild cortical atrophy and chronic periventricular microangiopathy.
--- NOTE | 2022-08-02 00:21 | XR_ITS ---
PROCEDURE INFORMATION: Exam: XR Chest Exam date and time: 08/02/2022 1:02 AM Age: 57 years old Clinical indication: Other: Tremors; Additional info: Tremors and seizure like activity TECHNIQUE: Imaging protocol: Radiologic exam of the chest. Views: 1 view. COMPARISON: CR XR CHEST 2V 02/05/2020 9:56 AM FINDINGS: Lungs: Unremarkable. No consolidation. Pleural spaces: Unremarkable. No pleural effusion. No pneumothorax. Heart/Mediastinum: Unremarkable. No cardiomegaly. Bones/joints: Unremarkable. IMPRESSION: No acute findings.
--- NOTE | 2022-08-02 00:23 | HMH.EDABDPAI ---
Discharge Plan Disposition Patient Disposition: Home, Self-Care Condition: Good Prescriptions Prescriptions: No Action atenolol 50 mg tablet 50 mg PO QDAY omega-3 fatty acids-fish oil 1 EACH capsule 1,200 each PO DAILY amlodipine-olmesartan 1 EACH tablet 10 each PO DAILY Referrals Follow up/Referrals: Markos Hernandez [Primary Care Provider] - See instructions Activity Restrictions/Add. 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 Please also discuss with your primary care team regarding alcohol rehabilitation. Please drink plenty of water and eat 3 balanced meals and return to the emergency department if symptoms recur. Clinical Impressions Clinical Impression: Acute confusion, Alcohol use disorder Instructions Patient Instructions: Alcohol Use Disorder, DI for Altered Mental Status Print Language Print Language: Slovenian Discharge ED Provider: Zuri Rosales Abdominal Pain HPI General Chief Complaint: Shortness of Breath/Dyspnea Stated Complaint: SOA Time Seen by Provider: 08/02/22 03:00 Mode of Arrival: Ambulatory Source of Information: Patient and Spouse Limitations: No Limitations History of Present Illness HPI narrative: Mr. Corona is a 57-year-old male past medical history for alcohol abuse presenting to the emergency department for transient Of confusion and concern for seizure-like activity. History provided by patient's at bedside. She reports today few minutes prior to arrival her had a period where he appeared confused his eyes rolled to the back of his head and he was tremulousness. Lasted about 5 minutes followed by postictal period of a few seconds. Patient reports he has been drinking heavily today. Patient reports he drinks 6 beers just prior to symptom onset. However patient reports he drinks heavily daily greater than 6 beers a day. Patient denies any fevers or other infectious-like symptoms. Denies prior history of seizures. Denies any chest pain, new dyspnea or new cough. Patient has no focal neurological deficits on exam. Denies any illicit drug use. No new medications. Related Data Home Medications Medication Instructions Recorded Confirmed atenolol 50 mg tablet 50 mg PO QDAY blood pressure 10/24/17 06/13/20 omega-3 fatty acids-fish oil 300 1,200 each PO DAILY Supplement 10/24/17 06/13/20 mg-1,000 mg capsule amlodipine 10 mg-olmesartan 20 mg 10 each PO DAILY BLOOD PRESSURE 11/03/17 06/13/20 tablet Allergies Allergy/AdvReac Type Severity Reaction Status Date / Time No Known Allergies Allergy Verified 08/15/20 09:21 PFSH PFS Social History Smoking Status: Current every day smoker tobacco type: cigarettes packs per day: 1 alcohol intake: current substance use type: denies use current occupational status: employed Travel in the last 8 weeks: None household members: spouse housing: house current occupation: [employer] current occupational exposures/hazards: Yes caffeine: Yes ROS Obtained: Yes All systems reviewed & no additional complaints except as documented Physical Exam General General appearance: alert and in no apparent distress Head Head exam: atraumatic and normocephalic Eye Eye exam: Present normal appearance and EOMI ENT ENT exam: Present normal exam and normal oropharynx Neck Neck exam: Present normal inspection Chest Chest inspection: Present normal inspection and symmetric chest wall rise Respiratory Respiratory exam: Present normal lung sounds bilaterally Cardiovascular Cardiovascular exam: Present regular rate and normal rhythm Abdominal Exam Abdominal exam: Present soft and normal bowel sounds Extremities Exam Extremities exam: Present normal inspection and full ROM Back Exam Back exam: Present normal inspection and full ROM Neurological
[2022-08-02 00:29] LABS: Basophils # 0.1 K/mm3 (0-0.2); Basophils % 2.3 % (0.1-2.0); Eosinophils # 0.2 K/mm3 (0.0-0.4); Eosinophils % 5.3 % (0.1-12.0); Hematocrit 49.5 % (42.0-52.0); Hemoglobin 16.6 g/dL (14.1-18.0); Lymphocytes # 1.4 K/mm3 (0.7-4.5); Lymphocytes % 31.4 % (10-50); Mean Corpuscular HGB Conc 33.5 g/dL (31.8-35.4); Mean Corpuscular Hemoglobin 32.6 pg (27.0-31.2); Mean Corpuscular Volume 97.2 fl (80-94); Mean Platelet Volume 7.5 fl (7.4-10.4); Monocytes # 0.3 K/mm3 (0.1-1.0); Monocytes % 7.2 % (1.7-9.3); Neutrophils # 2.5 K/mm3 (1.8-7.8); Neutrophils % 53.7 % (37.0-80.0); Platelet Count 173 K/mm3 (142-424); Red Cell Distribution Width 13.3 % (11.5-17.5); White Blood Count 4.6 K/mm3 (4.8-10.8)
[2022-08-02 00:31] LABS: Chloride 102 mmol/L (98-107); Potassium 3.8 mmoL/L (3.5-5.1); Sodium 137 mmol/L (136-145)
[2022-08-02 00:33] LABS: Blood Urea Nitrogen 5 mg/dl (9-20); Creatinine Clearance Estimated 159 mL/min (50-200); Estimated Glomerular Filt Rate 138 ml/min (>60); GFR (African American) 167 ML/MIN (>60)
[2022-08-02 00:34] LABS: Alanine Aminotransferase 32 U/L (12-78); Albumin Level 4.5 g/dl (3.5-5.0); Albumin/Globulin Ratio 1.6 (1.1-1.8); Alkaline Phosphatase 57 U/L (38-126); Anion Gap 16.8 mEq/L (5-15); Aspartate Amino Transferase 51 U/L (17-59); Bilirubin,Total 0.5 mg/dl (0.2-1.3); Calcium 9.4 mg/dl (8.4-10.2); Carbon Dioxide 22 mmol/L (22.0-30.0); Globulin 2.9 g/dL (1.3-3.2); Glucose 83 mg/dl (74-100); Magnesium 1.8 mg/dl (1.6-2.3); Total Protein,Serum 7.4 g/dl (6.3-8.2)
--- NOTE | 2022-08-02 00:36 | PC.NURSE ---
Pt gone to RAD
[2022-08-02 00:49] LABS: Troponin I < 0.01 ng/ml (0.00-0.034)
--- NOTE | 2022-08-02 00:55 | PC.NURSE ---
Pt back from RAD
--- NOTE | 2022-08-02 01:04 | PC.NURSE ---
Pt ambulatory to bathroom
[2022-08-02 01:20] LABS: Lactic Acid 1.7 mmol/L (0.7-2.1)
--- NOTE | 2022-08-02 01:22 | PC.NURSE ---
Pt provided with warm blanket
== END 2022-08-02 03:00 | disposition home or self-care (01) ==
PROVIDERS: Emergency Provider Student in an Organized Health Care Education/Training Program; PCP Family Medicine
DX: F10.10 Alcohol abuse, uncomplicated (principal); R41.0 Disorientation, unspecified
CPT/HCPCS: 70450; 71045; 80053; 83605; 83735; 84484; 85025; 93005; 99285

== ENCOUNTER 2024-06-16 13:23 | Outpatient (CLI) | payer MEDICAID, SELFPAY ==
--- NOTE | 2024-06-16 13:31 | XR_ITS ---
FINAL REPORT CLINICAL HISTORY: right shoulder pain COMPARISON: 01/28/2018 FINDINGS: RIGHT SHOULDER 2 views demonstrate no acute fracture or dislocation. The visualized joint spaces are normally aligned. The soft tissues are unremarkable. IMPRESSION: No acute process. Reviewed, Interpreted and Dictated by Tal Rice MD Transcribed by Nel Landaverde Authenticated and [facility]
--- NOTE | 2024-06-16 13:31 | XR_ITS ---
FINAL REPORT CLINICAL HISTORY: left shoulder pain COMPARISON: 05/08/2020 FINDINGS: LEFT SHOULDER 2 views of the left shoulder were obtained. There is no acute fracture or dislocation. The the acromioclavicular joint is intact. Mild hypertrophic changes are noted of the glenohumeral joint. Tendon anchors are noted in the humeral head. IMPRESSION: Degenerative and postop changes as above. Reviewed, Interpreted and Dictated by Tal Rice MD Transcribed by Nel Landaverde Authenticated and [facility]
== END 2024-06-16 23:59 | disposition home or self-care (01) ==
LOC: RAD 13:27
PROVIDERS: PCP Family Medicine; Visit Provider Physician Assistant
DX: M25.511 Pain in right shoulder (principal); M25.512 Pain in left shoulder
CPT/HCPCS: 73030

== ENCOUNTER 2024-07-16 08:22 | Outpatient (CLI) | payer MEDICAID, SELFPAY ==
--- NOTE | 2024-07-16 08:28 | IR_ITS ---
FINAL REPORT CLINICAL HISTORY: shoulder pain FINDINGS: LEFT SHOULDER INJECTION FOR MRI ARTHROGRAM Attending radiologist: Dr. Avalos Physician Band And Cuff Cutter: Ayush García PA-C HISTORY: Left shoulder pain. PROCEDURE: After informed consent was obtained, a time-out was performed. Utilizing local anesthesia and sterile technique, with direct fluoroscopic guidance, access to the joint was obtained . A small amount of contrast was injected to confirm needle tip location. Additional gadolinium contrast was injected. Fluoro time: 0.7 minutes. Radiation exposure in Reference air Kerma: 27.6 mGy. 2 radiographs were obtained. IMPRESSION: Status post injection for MRI arthrogram without immediate complication. Please see MRI report. Films reviewed , interpreted and dictated by Dr. Avalos. Transcribed by Ayush Vidal PA-C. Reviewed, Interpreted and Dictated by Ramon Avalos III, MD Transcribed by ISSAC Gruber Authenticated and [facility]
--- NOTE | 2024-07-16 08:36 | MR_ITS ---
PROCEDURE INFORMATION: Exam: MR Left Upper Extremity Joint With Contrast; Shoulder Exam date and time: 07/16/2024 9:23 AM Age: 59 years old Clinical indication: Pain; Shoulder; Left; Additional info: Left shoulder pain, post arthrogram joint injection TECHNIQUE: Imaging protocol: Magnetic resonance imaging of the left upper extremity with contrast. Exam focused on the shoulder. Contrast material: ISOVUE; Contrast volume: 1 ml; Contrast route: IV; COMPARISON: MR SHOULDER LT WO CON 12/23/2019 10:55 AM FINDINGS: Limitations: Study is technically limited due to motion artifact. Bones/joints: There is evidence of prior rotator cuff repair. There is up lifting of the humeral head often secondary to chronic rotator cuff tear. Glenohumeral joint is fairly well preserved. Glenoid labrum: Superior-posterior labrum has an irregular frayed contour that is likely degenerative in nature with underlying labral tear felt likely. Supraspinatus tendon: There is a large full-thickness tear involving a portion of the supraspinatus and infraspinatus tendons with tendinous retraction to the medial 3rd of the humeral head. Infraspinatus tendon: Refer to supraspinatus tendon. Subscapularis tendon: There is a partial intrasubstance tear involving the insertion site of the subscapularis tendon. Teres minor tendon: Unremarkable. No evidence of tear. Tendon of biceps brachii: Tendons the biceps brachii: Intra-articular portion of biceps tendon cannot be identified in may have been previously resected Glenohumeral ligaments: Unremarkable. Soft tissues: Prominent muscle atrophy of the supraspinatus.. IMPRESSION: 1. Limited study. 2. Large complete tear involving the conjoined portion of the supraspinatus and infraspinatus tendons with tendinous retraction and associated muscle atrophy of the supraspinatus. 3. Tendinopathy with partial tear involving the insertion site of the subscapularis tendon. 4. Nonvisualization of the intra-articular portion of the biceps tendon which may be secondary to prior tenodesis. Please correlate with history. 5. Degenerative changes with probable tear involving the posterosuperior glenoid labrum.
[2024-07-16] MEDS: GADOTERIDOL INJ 10ML SYRINGE IV (13:28)
== END 2024-07-16 23:59 | disposition home or self-care (01) ==
LOC: RAD 08:23
PROVIDERS: PCP Family Medicine; Visit Provider Physician Assistant
DX: M25.512 Pain in left shoulder (principal); M67.912 Unspecified disorder of synovium and tendon, left shoulder
CPT/HCPCS: 73040; 73222; A9576